=== PATIENT | female | born 1965 | race Caucasian/White ===

== ENCOUNTER 2016-08-03 16:48 | Inpatient (IN) | payer OTHER ==
--- NOTE | ~2016-08-03 | HP ---
Unit #: [id number] #: [id number] Patient: WILBERT GAMBOA [id number] [facility] [address] [facility] [address]. [place], [place] [address] [id number] I MR#: [id number] NAME: WILBERT GAMBOA. ROOM: 319 Age: 51 Sex: F Admission Date: 08/03/2016 : 1965 Attending Physician: Cherri Espinosa M.D. Primary Care Physician: Anderson Finley M.D. HISTORY AND PHYSICAL CHIEF COMPLAINT Cough, sputum production and sick for the last one week. HISTORY OF PRESENT ILLNESS This is a 51-year-old female who has a history of tobacco abuse, has been sick for the last one week. She is complaining of sore throat, ear pain, nasal congestion and headache, which as gradually getting worse and she started to cough, started to bring up sputum, although she did not see the color. She does not complain of hemoptysis. She had chest tightness, came to ER and was found to have a right lower lobe pneumonia. Patient is being admitted to telemetry unit at [facility]. She does not complain of nausea or vomiting. She does not complain of abdominal pain. Does not complain of any diarrhea. She does complain of chills, fever, fatigue and tired, and felt dehydrated. PAST MEDICAL HISTORY 1. History of depression. 2. History of drug abuse. According to patient she was on pain medication and got addicted to it, and has been in methadone clinic for the last three years. PAST SURGICAL HISTORY History of tubal ligation. FAMILY HISTORY Not significant. ALLERGIES Patient is allergic to penicillin and sulfa. REVIEW OF SYSTEMS No history of dizziness or passing out, although she felt dehydrated. No history of chest pain. No history of abdominal pain. No nausea, vomiting, diarrhea. No syncopal episode. No leg swelling. No numbness or tingling. No skin issues. The rest is as per history of presenting illness. PHYSICAL EXAMINATION GENERAL: The patient is lying in bed in no respiratory distress. She does have oxygen on. VITAL SIGNS: Blood pressure is 94/59, respiratory rate 16, pulse 78, temperature 97.5, oxygen saturation is 93%. HEENT: Head is normocephalic. Eye movements are normal. NECK: Supple. No thyromegaly. Trachea is in midline. Unit #: [id number] #: [id number] Patient: WILBERT GAMBOA CHEST: Has fair air entry, decreased at the right lower lobe. Crackles are present. CVS: S1 and S2 positive. Regular rhythm. ABDOMEN: Soft, no tenderness. EXTREMITIES: Negative edema. GLOBE CLEANER: Patient is awake, alert and oriented x3. No focal neurological deficit. DIAGNOSTIC STUDIES LABORATORY STUDIES: Lab workup shows WBC 17.5, hemoglobin 12.3, hematocrit 37.4, and platelet count of 262, lactic acid 1.5. Sodium 131, potassium 3.6, chloride 90, BUN 19, creatinine 0.6. Cardiac enzymes are stable. ABG - on 2 L shows pH 7.38, PCO2 49.9, pO2 63.3, oxygen saturation is 93%. Please note, this was on 2 L. IMAGING STUDIES: X-ray was done single view, which showed right lower lobe dense air space changes. ASSESSMENT AND PLAN Patient is being admitted to telemetry unit with: 1. Acute hypoxic respiratory failure. 2. Right lower lobe pneumonia, most likely community acquired pneumonia. 3. Tobacco abuse. 4. History of depression. 5. History of drug abuse in the past now on Methadone. TREATMENT PLAN Admit to telemetry unit. Dr. Johnson has been consulted. IV antibiotics are being started. CT scan of the chest without contrast will be done. IV fluids are being started. Patient also has some hypertension. Hopefully it will improve with IV fluids and nicotine patch is being applied. PLAN OF CARE Has been discussed with patient. Please refer to progress note for further orders. Dictated by Waylon Thrasher TD: 08/04/2016 12:06 JOB #: [id number] HISTORY AND PHYSICAL Page 1 of 1 X Cherri Espinosa MD HISTORY AND PHYSICAL
--- NOTE | ~2016-08-03 | CO ---
Unit #: [id number] #: [id number] Patient: WILBERT GAMBOA [id number] [address] [address] [id number] I MR#: [id number] NAME: WILBERT GAMBOA. ROOM: 319 Age: 51 Sex: F Admission Date: 08/03/2016 : 1965 Attending Physician: Cherri Espinosa M.D. Primary Care Physician: Anderson Finley M.D. CONSULTATION REPORT REASON FOR CONSULTATION Pneumonia and lung nodule. CHIEF COMPLAINT Shortness of breath. HISTORY OF PRESENT ILLNESS Patient basically is a 51-year-old female who presented with a complaint of shortness of breath and cough for last one week and had an upper respiratory tract infection, was treated with IV antibiotics and prednisone in the emergency room and had oxygen saturation of 85% on room air, brought into the emergency room and admitted. Chest x-ray showed left upper lobe lung nodule and also right-sided pleural effusion. I am seeing the patient at bedside. She denies any nausea, vomiting, diarrhea. PHYSICAL EXAMINATION VITAL SIGNS: Temperature 98, pulse 87, respirations 12, blood pressure 100/70. NEUROLOGIC: Awake, alert, oriented. No neuro deficit. HEENT: PERRLA plus 1. NECK: Supple. No JVD. CHEST: Bilateral air entry. Bilateral mild rhonchi. GASTROINTESTINAL: Nontender, soft. Bowel sounds positive. EXTREMITIES: No edema. SKIN: No rash. No ulcer. LYMPHATIC: No lymphadenopathy. DIAGNOSTIC STUDIES Labs and imaging have been reviewed. PAST MEDICAL HISTORY COPD. SOCIAL HISTORY Positive for smoking. No alcohol. No drug abuse. FAMILY HISTORY None as per record. MEDICATIONS As per MAR, has been reviewed. ASSESSMENT 1. Pneumonia. Unit #: [id number] #: [id number] Patient: WILBERT GAMBOA 2. Lung nodule. 3. Chronic obstructive pulmonary disease exacerbation. PLAN Plan is to admit the patient. Continue IV antibiotics. Add IV steroids. Noncontrast CT of the chest. Bronchodilators. Gastrointestinal and deep venous thrombosis prophylaxis. Thank you very much for this consultation. Will continue to follow the patient. Dictated by... Waylon Corcoran TD: 08/04/2016 11:22 JOB #: [id number] CONSULTATION REPORT Page 1 of 1 X Abbie Johnson MD CONSULTATION REPORT
--- NOTE | ~2016-08-03 | DS ---
Unit #: [id number] #: [id number] Patient: WILBERT GAMBOA [id number] [address] [address] [id number] I MR#: [id number] NAME: WILBERT GAMBOA. ROOM: 319 Age: 51 Sex: F Admission Date: 08/03/2016 : 1965 Discharge Date: 08/08/2016 Attending Physician: Cherri Espinosa M.D. Primary Care Physician: Anderson Finley M.D. DISCHARGE SUMMARY FINAL DIAGNOSES 1. Acute respiratory failure. 2. Pneumonia. 3. Lung nodule. 4. Acute exacerbation of chronic obstructive pulmonary disease. 5. Episode of sinus bradycardia in the hospital which is resolved. 6. History of depression. 7. History of drug abuse. She is in methadone clinic at this time. DISCHARGE MEDICATIONS 1. Levaquin 750 mg daily for seven days. 2. Chantix as per protocol. 3. Nicotine patch 21 mg daily. 4. Symbicort 160/4.5 two puffs twice a day. 5. Tylenol 650 q.4 p.r.n. 6. Methadone - continue home dose. 7. Prednisone tapering dose. CONSULTATIONS DURING HOSPITALIZATION Dr. Johnson from pulmonary services. DIAGNOSTIC STUDIES LABORATORY: Lab workup on discharge: BMP shows sodium 140, potassium 4.1, chloride 102, BUN 14, creatinine 0.7. Bronch culture with 1+ normal silvia. Troponin less than 0.03. TSH 0.36. CBC shows WBC 13, hemoglobin 11.2, hematocrit 34.8, platelet count 308,000. Blood cultures were no growth. IMAGING: CT scan of the chest was done without contrast because of abnormal chest x-ray which shows dense airspace opacity in the right lower lobe. Bilateral calcified granulomata present. Repeat CT scan needs to be done in three months. HOSPITAL COURSE Ms. Banegas is a 51-year-old female, who was admitted to the hospital with shortness of breath, cough, and chest tightness. Patient was diagnosed with acute hypoxic respiratory failure and right lower lobe pneumonia. Patient was started on IV Levaquin and nebulizer treatment and IV Solu-Medrol. She is doing much better at this time, is being discharged home as she is stable. Patient also has a lung nodule, left lower lobe. Patient will need repeat CT scan to be done in three months. Unit #: [id number] #: [id number] Patient: WILBERT GAMBOA Tobacco cessation counseling has been done. Patient is being prescribed Chantix and nicotine. She does verbalize understanding. PHYSICAL EXAMINATION VITAL SIGNS: On discharge: Blood pressure is 130/84, respiratory rate 18, pulse 62, temperature 98.4, oxygen saturation 98%. CHEST: Fair air entry. CARDIOVASCULAR: Regular rhythm. ABDOMEN: Soft. DISCHARGE INSTRUCTIONS 1. The patient is being discharged home in stable condition. 2. Medications as per med rec. 3. Followup primary care provider in one week. 4. Tobacco cessation counseling done. 5. Followup Dr. Johnson in two weeks. 6. CT scan of the chest without contrast to be done in three months. Dictated by... Cherri Espinosa M.D. Lana TD: 08/11/2016 10:04 JOB #: [id number] DISCHARGE SUMMARY Page 1 of 1 X Cherri Espinosa MD X DISCHARGE SUMMARY
--- NOTE | ~2016-08-03 | CR72 ---
[facility] A Service of [facility] & [facility] RADIOLOGY TEXT RESULTS PATIENT: WILBERT GAMBOA LOCATION: [facility] 319-01 : [birth year] UNIT #: [id number] AGE: [address]: Cherri Espinosa MD SEX: F ORDER DR: [id number] [facility] [address] [facility]. [place], [place] [address] [id number] I MR#: [id number] #: [id number] NAME: WILBERT GAMBOA. : 1965 SEX: F STUDY DATE/TIME: 08/03/2016 19:00 UNIT: [address] ROOM: [facility] STUDY DESCRIPTION: CR Chest Single View Portable Attending Physician: Cherri Espinosa M.D. Ordering Physician: David Amanda Aprn Primary Care Physician: Anderson Finley M.D. MEDICAL IMAGING REPORT This report is preliminary unless electronic signature is present EXAM Chest portable 08/03/2016 1900 hours HISTORY 51-year-old woman with 1-week history of sinus congestion and cough, shortness of air. COMPARISON 01/20/2016 FINDINGS A single upright portable view demonstrates normal heart size. There is dense airspace change in the right lower lobe likely with associated effusion. There is a nodular area in the left midlung measuring 1.4 cm with very patchy density at the left base. No left effusion is seen. These findings are new from 01/20/2016. IMPRESSION New dense airspace change with air bronchograms in the right lower lobe and associated small to moderate right pleural effusion. There is a nodular density in the left midlung measuring 1.4 cm. The findings are most likely infectious. The right-sided findings could represent community acquired pneumonia, however the presence of a nodule in the left lung could suggest atypia other entities such as septic emboli. Correlate with risk factors. Consider further characterization with CT if warranted. Dictated by... Roxana Triplett M.D. THIS IS AN ELECTRONICALLY VERIFIED REPORT Roxana Triplett M.D. at 08/04/2016 8:46 AM JACKIE/raul [facility]. [facility] A Service of [facility] & [facility] RADIOLOGY TEXT RESULTS PATIENT: WILBERT GAMBOA LOCATION: [facility] 319-01 : [birth year] UNIT #: [id number] AGE: [address]: Cherri Espinosa MD SEX: F ORDER DR: TD: 08/04/2016 06:37 JOB #: [id number] MEDICAL IMAGING REPORT Page 1 of 1 COPY
--- NOTE | ~2016-08-03 | OR ---
Unit #: [id number] #: [id number] Patient: WILBERT GAMBOA [id number] [address] [address] [id number] I MR#: [id number] NAME: WILBERT GAMBOA. ROOM: 319 Date of Procedure: 08/06/2016 Admission Date: 08/03/2016 Surgeon: Abbie Johnson M.D. : 1965 Attending Physician: Cherri Espinosa M.D. Primary Care Physician: Anderson Finley M.D. PROCEDURE OPERATIVE NOTE PREOPERATIVE DIAGNOSIS Pneumonia. POSTOPERATIVE DIAGNOSIS Pneumonia. PROCEDURE PERFORMED Diagnostic bronchoscopy. INDICATION FOR STUDY Pneumonia. PROCEDURE After taking consent from the patient, after explaining the risks and benefits, the patient was placed in the appropriate position. The bronchoscope was introduced through the oral cavity. Vocal cords appeared to be symmetrically moving toward midline. Trachea was normal. Bella was sharp. We examined the right upper, right middle and right lower lobe, left upper lobe, lingula and left lower lobe. No endobronchial lesion was found. There were thick mucoid secretions in both lungs which were therapeutically suctioned. We did a bronchoalveolar lavage in the right lower lobe area with 100 ml of saline in and 20 ml back. The patient tolerated the procedure very well with no complications. Dictated by... Waylon Corcoran TD: 08/06/2016 12:07 JOB #: [id number] Unit #: [id number] #: [id number] Patient: WILBERT GAMBOA PROCEDURE OPERATIVE NOTE Page 1 of 1 X Abbie Johnson MD X PROCEDURE OPERATIVE NOTE
--- NOTE | ~2016-08-03 | EKG ---
PATIENT: WILBERT GAMBOA UNIT #: [id number] Ventricular Rate: 47 BPM Atrial Rate: 47 BPM P-R Interval: 136 ms QRS Duration: 80 ms Q-T Interval: 504 ms QTC Calculation(Bezet): 446 ms P [place]: 61 degrees Calculated R [place]: 61 degrees Calculated T [place]: 57 degrees Diagnosis Line: Marked sinus bradycardia Diagnosis Line: Abnormal ECG Diagnosis Line: When compared with ECG of 03-AUG-2016 21:14, Diagnosis Line: Vent. rate has decreased BY 52 BPM Diagnosis Line: Confirmed by MANOJ HAWTHORNE MD ([id number]) on 08/07/2016 Diagnosis Line: 6:56:48 PM INTERPRETING MD: MARINE CHAMBERS
--- NOTE | ~2016-08-03 | EKG ---
PATIENT: WILBERT GABMOA UNIT #: [id number] Ventricular Rate: 99 BPM Atrial Rate: 99 BPM P-R Interval: 130 ms QRS Duration: 90 ms Q-T Interval: 334 ms QTC Calculation(Bezet): 428 ms P [place]: 67 degrees Calculated R [place]: 72 degrees Calculated T [place]: 71 degrees Diagnosis Line: Normal sinus rhythm Diagnosis Line: Normal ECG Diagnosis Line: No previous ECGs available Diagnosis Line: Confirmed by TONY ALCANTARA MD ([id number]) on Diagnosis Line: 08/04/2016 10:40:56 PM INTERPRETING MD: LACHO
--- NOTE | ~2016-08-03 | CT57 ---
[facility] A Service of [facility] & [facility] RADIOLOGY TEXT RESULTS PATIENT: WILBERT GAMBOA LOCATION: [facility] 319-01 : [birth year] UNIT #: [id number] AGE: [address]: Cherri Espinosa MD SEX: F ORDER DR: [id number] [address] [place], [place] [address] [id number] I MR#: [id number] Acc #: [id number] NAME: WILBERT GAMBOA : 1965 SEX: F STUDY DATE/TIME: 08/04/2016 13:32 UNIT: A U ROOM: 319 STUDY DESCRIPTION: CT Chest Wo Cont Attending Physician: Cherri Espinosa M.D. Ordering Physician: Cherri Espinosa M.D. Primary Care Physician: Anderson Finley M.D. MEDICAL IMAGING REPORT This report is preliminary unless electronic signature is present EXAM CT chest without contrast, 08/04/2016 13:32 hours HISTORY Chest pain, cough for 1 week, abnormal chest x-ray, evaluate left lung nodule and right side pneumonia. COMPARISON 08/03/2016, 01/20/2016 TECHNIQUE Helical noncontrasted images were obtained from the thoracic inlet through the adrenal glands. Sagittal and coronal reconstructions were performed. Total exam DLP 373 mGy-cm. This CT exam was performed with one or more of the following radiation dose reduction techniques: automatic exposure control, adjustment of mA and/or kV according to patient size, and iterative reconstruction. FINDINGS Images through the thoracic inlet demonstrate no thyroid mass or adenopathy. Images through the chest demonstrate normal caliber aorta. Cardiac chambers, pericardium and esophagus are normal. No definite adenopathy. The lung window images are abnormal. There is underlying diffuse emphysematous change, more severe in the upper lungs than lower lungs. There is dense airspace opacity in the right lower lobe diffusely with minimal involvement of the right upper lobe and right middle lobe. There is a nodule in the right upper lobe on image 29 measuring 4.0 mm and 331 Hounsfield units most consistent with a benign granuloma. There is a [facility] A Service of [facility] & [facility] RADIOLOGY TEXT RESULTS PATIENT: WILBERT GAMBOA [id number] [birth year] UNIT #: [id number] AGE: [address]: Cherri Espinosa MD SEX: F ORDER DR: nodule in the left upper lobe measuring 1.2 cm and 423 Hounsfield units consistent with a benign granuloma. There are a few tiny nodules at the left lung base several of which appear calcified. Some of these are not calcified. These could represent infectious change. Metastatic disease felt less likely. IMPRESSION 1. Dense airspace opacity in the right lower lobe with areas of less dense opacity at the right lung base, right upper lobe and right middle lobe. 2. There are bilateral calcified granulomata present including the nodule in the left mid lung seen on chest film which is clearly calcified. There are multiple tiny calcified granuloma in both lower lobes as well as numerous small noncalcified nodules in the left lower lobe. These cannot be appreciated on prior plain film. Noncalcified granulomata would be statistically most likely however, metastatic disease cannot be excluded. Correlation with any prior chest CT would be helpful if these exist. Alternatively, suggest clinical and plain film radiographic followup of the right lower lobe process. Suggest a 3-month followup CT of the left-sided lung nodules. STAT * RESULT Dictated by... Roxana Triplett M.D. THIS IS AN ELECTRONICALLY VERIFIED REPORT Roxana Triplett M.D. at 08/04/2016 5:37 PM Gregory TD: 08/04/2016 14:05 JOB #: [id number] MEDICAL IMAGING REPORT Page 1 of 1 COPY
[~2016-08-03 16:48] MED LIST: ALBUTEROL17 GM INH; ALPRAZOLAM PO; CLINDAMYCIN HC300 MG PO; ESGIC CAPSULE1 CAP PO; LEVAQUIN PO; NASONEX17 GM; ORUDIS75 M1 EXT; ORUDIS75 M1 PO; PHENERGAN PO; PHENERGAN W/CO120 ML PO; ULTRAM PO; ZITHROMAX PO; ZITHROMAX1 G/PKT PO; ZOLOFT PO
[2016-08-03 21:46] LABS: BASOPHIL# 0.1 X10e3 (0-0.3); BASOPHIL% 0.4 % (0-2.5); HEMATOCRIT 37.4 % (35.0-45.0); HEMOGLOBIN 12.3 gm/dL (12.0-16.0); LYMPHOCYTE# 0.8 X10e3 (1.0-3.5); LYMPHOCYTE% 4.7 % (17.0-45.0); MEAN CELL VOLUME 86.3 FL (83-96); MEAN CORPUSCULAR HEMOGLOBIN 28.5 PG (28-34); MEAN PLATELET VOLUME 9.5 FL (6.5-11.5); MONOCYTE# 0.9 X10e3 (0-1.0); MONOCYTE% 5.2 % (3.0-12.0); NEUTROPHIL# 15.7 X10e3 (1.5-7.1); NEUTROPHIL% 89.7 % (40-75); PLATELET COUNT 262 X10e3 (140-420); RED BLOOD COUNT 4.33 X10e (3.90-5.30); RED CELL DISTRIBUTION WIDTH 12.8 % (11.0-15.5); WHITE BLOOD COUNT 17.5 X10e3 (4.0-10.5)
[2016-08-03 21:49] LABS: DIFF IND YES
[2016-08-03 22:05] LABS: PLATELET ESTIMATE NORMAL (NORMAL)
[2016-08-03 22:10] LABS: ALBUMIN SERUM 3.2 g/dL (3.5-5.0); BILIRUBIN,TOTAL 0.6 mg/dL (0.2-2.0); BUN/CREATININE RATIO 31.66; CALCIUM SERUM 8.9 mg/dL (8.4-10.2); CREATININE SERUM 0.6 mg/dL (0.6-1.4); GLOM FILT RATE Estimated 104.8 mL/min (>60); POTASSIUM 3.6 mmol/L (3.5-5.1); PROTEIN TOTAL SERUM 8.3 g/dL (6.0-8.3)
[2016-08-03 22:19] LABS: ARTERIAL BLOOD GAS pH 7.381 (7.350-7.450)
[2016-08-03 22:20] LABS: ARTERIAL BLD GAS O2 SATURATION 93.5 % (90.0-100.0); ARTERIAL BLOOD GAS ALLEN TEST NORMAL; ARTERIAL BLOOD GAS ART SITE LEFT RADIAL; ARTERIAL BLOOD GAS CARBOXY HB 4.6 %sat (0.0-9.0); ARTERIAL BLOOD GAS DELIVERY NASAL CANNULA; ARTERIAL BLOOD GAS HCO3 29.6 mmol/L; ARTERIAL BLOOD GAS MET HB 0.8 %sat (0.0-2.0); ARTERIAL BLOOD GAS PCO2 49.9 mmHg (35.0-45.0); ARTERIAL BLOOD GAS PO2 63.3 mmHg (80.0-100); ARTERIAL DRAW? YES
[2016-08-04] MEDS ORDERED: ZOLOFT PO (01:18)
[2016-08-04] MEDS ORDERED: METHADONE PO (01:19)
[2016-08-04 08:29] LABS: LEGIONELLA AG URINE NEG (NEG)
[2016-08-05 05:00] LABS: HEMATOCRIT 33.6 % (35.0-45.0); HEMOGLOBIN 10.8 gm/dL (12.0-16.0); MEAN CELL VOLUME 87.3 FL (83-96); MEAN CORPUSCULAR HEMOGLOBIN 28.1 PG (28-34); MEAN CORPUSCULAR HGB CONC 32.2 g/dL (30-36); MEAN PLATELET VOLUME 9.4 FL (6.5-11.5); RED BLOOD COUNT 3.85 X10e (3.90-5.30); RED CELL DISTRIBUTION WIDTH 13.3 % (11.0-15.5)
[2016-08-05 06:07] LABS: ALBUMIN SERUM 2.1 g/dL (3.5-5.0); BILIRUBIN,TOTAL 0.4 mg/dL (0.2-2.0); BUN/CREATININE RATIO 28.33; CALCIUM SERUM 8.3 mg/dL (8.4-10.2); CREATININE SERUM 0.6 mg/dL (0.6-1.4); GLOM FILT RATE Estimated 104.8 mL/min (>60); POTASSIUM 4.1 mmol/L (3.5-5.1); PROTEIN TOTAL SERUM 5.6 g/dL (6.0-8.3)
[2016-08-06 14:00] LABS: BF TOTAL NUCLEATED CELL COUNT 281 CMM (0-100); BODY FLUID APPEARANCE BLOODY; BODY FLUID SOURCE PLEURAL
[2016-08-06 14:01] LABS: BODY FLUID RBC <10000 CMM
[2016-08-07 05:33] LABS: BASOPHIL% 0.2 % (0-2.5); HEMATOCRIT 34.8 % (35.0-45.0); HEMOGLOBIN 11.2 gm/dL (12.0-16.0); LYMPHOCYTE# 1.7 X10e3 (1.0-3.5); MEAN CELL VOLUME 86.7 FL (83-96); MEAN CORPUSCULAR HEMOGLOBIN 27.9 PG (28-34); MEAN CORPUSCULAR HGB CONC 32.2 g/dL (30-36); MEAN PLATELET VOLUME 9.7 FL (6.5-11.5); MONOCYTE% 7.7 % (3.0-12.0); NEUTROPHIL# 10.3 X10e3 (1.5-7.1); NEUTROPHIL% 79.1 % (40-75); PLATELET COUNT 308 X10e3 (140-420); RED BLOOD COUNT 4.01 X10e (3.90-5.30); RED CELL DISTRIBUTION WIDTH 13.1 % (11.0-15.5)
[2016-08-07 05:48] LABS: DIFF IND NO
[2016-08-07 06:15] LABS: BUN/CREATININE RATIO 23.33; CALCIUM SERUM 8.2 mg/dL (8.4-10.2); CREATININE SERUM 0.6 mg/dL (0.6-1.4); GLOM FILT RATE Estimated 104.8 mL/min (>60); POTASSIUM 3.2 mmol/L (3.5-5.1)
[2016-08-07 18:38] LABS: MAGNESIUM 1.7 mg/dL (1.6-3.0)
[2016-08-08 07:01] LABS: CALCIUM SERUM 8.5 mg/dL (8.4-10.2); CREATININE SERUM 0.7 mg/dL (0.6-1.4); GLOM FILT RATE Estimated 99.6 mL/min (>60); POTASSIUM 4.1 mmol/L (3.5-5.1)
[2016-08-08] MEDS ORDERED: TYLENOL325 M1 PO (14:51)
[2016-08-08] MEDS ORDERED: LEVAQUIN750 MG PO (14:53)
[2016-08-08] MEDS ORDERED: PREDNISONE (14:54)
[2016-08-08] MEDS ORDERED: SYMBICORT INH (14:55)
[2016-08-08] MEDS ORDERED: NICOTINE PATCH TD (14:57)
[2016-08-08] MEDS ORDERED: CHANTIX (14:58)
== END 2016-08-08 15:42 | disposition home or self-care (01) | DRG 166 ==
LOC: CED 16:48 → CFTX 16:48 → CED 19:17 → CFTX 19:17 → CEDOF 22:10 → CED 22:26 → CEDOF 08-04 00:43 → C3A PCU 08-04 00:43
PROVIDERS: Internal Medicine; Nurse Practitioner Family; Physician Assistant Medical
PROC: 0B9F8ZX Drainage of Right Lower Lung Lobe, Via Natural or Artificial Opening Endoscopic, Diagnostic (ICD-10-PCS; principal; 2016-08-06 11:02)
PROC: 0B9M8ZZ Drainage of Bilateral Lungs, Via Natural or Artificial Opening Endoscopic (ICD-10-PCS; 2016-08-06 11:02)
DX: J96.01 Acute respiratory failure with hypoxia (principal); J18.9 Pneumonia, unspecified organism; J44.1 Chronic obstructive pulmonary disease with (acute) exacerbation; F32.9 Major depressive disorder, single episode, unspecified; Z98.51 Tubal ligation status; Z88.0 Allergy status to penicillin; Z88.2 Allergy status to sulfonamides; F17.210 Nicotine dependence, cigarettes, uncomplicated; R91.1 Solitary pulmonary nodule; R00.1 Bradycardia, unspecified; F11.99 Opioid use, unspecified with unspecified opioid-induced disorder
CPT/HCPCS: 36415; 36600; 71010; 71250; 80048; 80053; 80200; 80202; 82308; 82550; 82803; 83605; 83735; 84443; 84484; 85025; 85027; 87040; 87070; 87102; 87106; 87116; 87205; 87206; 87252; 87254; 87278; 87449; 87899; 88108; 88312; 89051; 93005; 94640; 94760; 96360; 99285; J0171; J1650; J1956; J2250; J2930; J3010; J3260; J3370

== ENCOUNTER 2016-09-09 22:10 | Emergency (ER) | payer OTHER ==
[~2016-09-09 22:10] MED LIST changes: +CHANTIX; +LEVAQUIN750 MG PO; +METHADONE PO; +NICOTINE PATCH TD; +PREDNISONE; +SYMBICORT INH; +TYLENOL325 M1 PO
== END 2016-09-10 02:00 | disposition home or self-care (01) ==
LOC: CED 22:10
DX: H20.00 Unspecified acute and subacute iridocyclitis (principal); F17.200 Nicotine dependence, unspecified, uncomplicated; Z88.0 Allergy status to penicillin; Z88.2 Allergy status to sulfonamides
CPT/HCPCS: 99283

== ENCOUNTER 2016-10-15 08:32 | Emergency (ER) | payer OTHER ==
[~2016-10-15] VITALS: Ht 162.6 cm; Wt 48.1 kg
[2016-10-15 09:15] LABS: BASOPHIL# 0.1 X10e3 (0-0.3); BASOPHIL% 0.7 % (0-2.5); EOSINOPHIL% 0.2 % (0.0-7.0); HEMOGLOBIN 14.9 gm/dL (12.0-16.0); LYMPHOCYTE# 1.6 X10e3 (1.0-3.5); LYMPHOCYTE% 13.3 % (17.0-45.0); MEAN CELL VOLUME 84.5 FL (83-96); MEAN CORPUSCULAR HEMOGLOBIN 27.4 PG (28-34); MEAN CORPUSCULAR HGB CONC 32.5 g/dL (30-36); MEAN PLATELET VOLUME 9.5 FL (6.5-11.5); MONOCYTE# 0.6 X10e3 (0-1.0); MONOCYTE% 5.1 % (3.0-12.0); NEUTROPHIL# 9.6 X10e3 (1.5-7.1); NEUTROPHIL% 80.7 % (40-75); PLATELET COUNT 309 X10e3 (140-420); RED BLOOD COUNT 5.45 X10e (3.90-5.30); RED CELL DISTRIBUTION WIDTH 13.6 % (11.0-15.5); WHITE BLOOD COUNT 11.9 X10e3 (4.0-10.5)
[2016-10-15 09:17] LABS: DIFF IND NO
[2016-10-15 10:40] LABS: ARTERIAL BLD GAS O2 SATURATION 92.6 % (90.0-100.0); ARTERIAL BLOOD GAS ALLEN TEST NORMAL; ARTERIAL BLOOD GAS ART SITE RIGHT RADIAL; ARTERIAL BLOOD GAS CARBOXY HB 2.5 %sat (0.0-9.0); ARTERIAL BLOOD GAS HCO3 25.8 mmol/L; ARTERIAL BLOOD GAS MET HB 0.6 %sat (0.0-2.0); ARTERIAL BLOOD GAS PO2 68.9 mmHg (80.0-100); ARTERIAL BLOOD GAS pH 7.429 (7.350-7.450); ARTERIAL DRAW? YES
[2016-10-15 12:16] LABS: CREATININE SERUM 0.7 mg/dL (0.6-1.4)
[2016-10-15 12:18] LABS: BUN/CREATININE RATIO 25.71
[2016-10-15 12:19] LABS: GLOM FILT RATE Estimated 99.6 mL/min (>60)
[2016-10-15 12:22] LABS: POTASSIUM 3.7 mmol/L (3.5-5.1)
[2016-10-15 12:24] LABS: CALCIUM SERUM 8.8 mg/dL (8.4-10.2)
[2016-10-15 12:25] LABS: ALBUMIN SERUM 3.7 g/dL (3.5-5.0); PROTEIN TOTAL SERUM 7.2 g/dL (6.0-8.3)
[2016-10-15 12:26] LABS: BILIRUBIN,TOTAL 0.3 mg/dL (0.2-2.0)
[2016-10-15 12:27] LABS: BILIRUBIN, DIRECT 0.1 mg/dL (0.0-0.2); BILIRUBIN,INDIRECT 0.2 mg/dL (0.0-0.9)
== END 2016-10-15 12:07 | disposition left against medical advice (07) ==
LOC: CED 08:32 → CFTX 10:15 → CED 10:15
PROVIDERS: Emergency Medicine
DX: R11.2 Nausea with vomiting, unspecified (principal); J44.9 Chronic obstructive pulmonary disease, unspecified; Z88.0 Allergy status to penicillin; Z88.2 Allergy status to sulfonamides
CPT/HCPCS: 36415; 36600; 80048; 80076; 82150; 82803; 82947; 83690; 85025; 96361; 96374; 96375; 99284; C9113; J2405; J2550

== ENCOUNTER 2016-10-21 18:24 | Emergency (ER) | payer OTHER ==
--- NOTE | ~2016-10-21 | EKG ---
PATIENT: WILBERT GAMBOA UNIT #: [id number] Ventricular Rate: 98 BPM Atrial Rate: 98 BPM P-R Interval: 126 ms QRS Duration: 78 ms Q-T Interval: 350 ms QTC Calculation(Bezet): 446 ms P [place]: 79 degrees Calculated R [place]: 80 degrees Calculated T [place]: 74 degrees Diagnosis Line: Normal sinus rhythm Diagnosis Line: Normal ECG Diagnosis Line: When compared with ECG of 07-AUG-2016 12:14, Diagnosis Line: Vent. rate has increased BY 51 BPM Diagnosis Line: Confirmed by PEDRO LUIS DICKENS MD ([id number]) on Diagnosis Line: 10/24/2016 8:03:24 AM INTERPRETING MD: MANINDER CHAMBERS
[2016-10-21 19:08] LABS: BASOPHIL# 0.1 X10e3 (0-0.3); BASOPHIL% 0.3 % (0-2.5); EOSINOPHIL% 0.3 % (0.0-7.0); HEMATOCRIT 43.9 % (35.0-45.0); HEMOGLOBIN 14.7 gm/dL (12.0-16.0); LYMPHOCYTE# 2.1 X10e3 (1.0-3.5); LYMPHOCYTE% 14.1 % (17.0-45.0); MEAN CELL VOLUME 83.5 FL (83-96); MEAN CORPUSCULAR HEMOGLOBIN 27.9 PG (28-34); MEAN CORPUSCULAR HGB CONC 33.4 g/dL (30-36); MEAN PLATELET VOLUME 9.9 FL (6.5-11.5); MONOCYTE# 1.6 X10e3 (0-1.0); MONOCYTE% 10.5 % (3.0-12.0); NEUTROPHIL# 11.4 X10e3 (1.5-7.1); NEUTROPHIL% 74.8 % (40-75); PLATELET COUNT 276 X10e3 (140-420); RED BLOOD COUNT 5.26 X10e (3.90-5.30); RED CELL DISTRIBUTION WIDTH 13.6 % (11.0-15.5); WHITE BLOOD COUNT 15.2 X10e3 (4.0-10.5)
[2016-10-21 19:10] LABS: DIFF IND NO
[2016-10-21 19:21] LABS: POC - CKMB 1.9 ng/mL (0.0-7.9); POC - MYOGLOBIN 95.6 ng/mL (0.0-169.0)
[2016-10-21 19:22] LABS: POC - TROPONIN <0.05 ng/mL (<=0.05)
[2016-10-21 19:24] LABS: URINE SOURCE CLEAN CATCH
[2016-10-21 19:28] LABS: URINE APPEARANCE HAZY; URINE BILIRUBIN NEG (NEG); URINE BLOOD TRACE-INTACT (NEG); URINE COLOR YELLOW; URINE GLUCOSE NEG (NORM); URINE KETONE NEG (NEG); URINE LEUKOCYTE ESTERASE TRACE (NEG); URINE NITRATE NEG (NEG); URINE PROTEIN TRACE (NEG); URINE UROBILINOGEN 0.2 MG/DL (NORM)
[2016-10-21 19:29] LABS: MICRO INDICATED? YES
[2016-10-21 19:31] LABS: ALBUMIN SERUM 3.9 g/dL (3.5-5.0); BILIRUBIN, DIRECT 0.1 mg/dL (0.0-0.2); BILIRUBIN,INDIRECT 0.2 mg/dL (0.0-0.9); BILIRUBIN,TOTAL 0.3 mg/dL (0.2-2.0); BUN/CREATININE RATIO 21.11; CALCIUM SERUM 9.1 mg/dL (8.4-10.2); CREATININE SERUM 0.9 mg/dL (0.6-1.4); GLOM FILT RATE Estimated 73.6 mL/min (>60); MAGNESIUM 2.1 mg/dL (1.6-3.0); PROTEIN TOTAL SERUM 7.7 g/dL (6.0-8.3)
[2016-10-21 19:34] LABS: CULTURE INDICATED? NO; URINE BACTERIA NEG (NEG); URINE SQUAMOUS EPITHELIAL CELL MODERATE /[HPF]; URINE TRANSITIONAL EPI CELLS FEW /[HPF]
[2016-10-21 19:35] LABS: POTASSIUM 2.6 mmol/L (3.5-5.1)
== END 2016-10-21 22:34 | disposition home or self-care (01) ==
LOC: SED 18:24
PROVIDERS: Physician Assistant
DX: E87.6 Hypokalemia (principal); F32.9 Major depressive disorder, single episode, unspecified; Z98.51 Tubal ligation status; F17.200 Nicotine dependence, unspecified, uncomplicated; Z88.0 Allergy status to penicillin; Z88.2 Allergy status to sulfonamides; Z79.899 Other long term (current) drug therapy
CPT/HCPCS: 36415; 80048; 80076; 81003; 82553; 83735; 83874; 84484; 85025; 93005; 96361; 96365; 99285